=== PATIENT | male | born 1985 ===

== ENCOUNTER 2017-06-18 19:15 | Emergency (ER) | payer BC ==
[2017-06-18 19:42] VITALS: BP 119/78
--- NOTE | 2017-06-18 21:24 | UC ---
Hand/Wrist HPI - HPI Summary HPI Summary: Patient here with onset of redness and swelling right hand dorsal surface overlying third to fifth metacarpals. Reports that he got a piece of metal stuck on the ulnar aspect of his right hand about a month ago while he was working on his car and was unable to remove it. Other than tenderness from time to time he has not had any trouble with this area until yesterday. Last TDaP in 2017. - History Of Current Complaint Chief Complaint: UCUpperExtremity Stated Complaint: HAND COMPLAINT Time Seen by Provider: 06/18/17 21:14 Hx Obtained From: Patient Onset/Duration: Gradual Onset, Lasting Days - 1 day, Still Present Severity Initially: Moderate Severity Currently: Moderate Pain Intensity: 3 Pain Scale Used: 0-10 Numeric Character Of Pain: Sharp Aggravating Factor(s): Movement, Other - touch Alleviating Factor(s): Rest Associated Signs And Symptoms: Positive: Swelling, Redness. Negative: Numbness/ Tingling Related History: Dominant Hand Right - Allergies/Home Medications Allergies/Adverse Reactions: Allergies Allergy/AdvReac Type Severity Reaction Status Date / Time No Known Allergies Allergy Verified 06/18/17 19:35 PMH/Surg Hx/FS Hx/Imm Hx Previously Healthy: Yes - Surgical History Surgical History: None - Family History Known Family History: Positive: Hypertension - Social History Alcohol Use: Occasionally Substance Use Type: None Smoking Status (MU): Never Smoked Tobacco Review of Systems Constitutional: Negative Skin: Other - erythema right hand dorsal surface Respiratory: Negative Cardiovascular: Negative Gastrointestinal: Negative Musculoskeletal: Edema - right hand All Other Systems Reviewed And Are Negative: Yes Physical Exam Triage Information Reviewed: Yes Appearance: Well-Appearing, No Pain Distress, Well-Nourished Vital Signs: Initial Vital Signs Temp 98 F 06/18/17 19:35 Pulse 62 06/18/17 19:35 Resp 18 06/18/17 19:35 BP 119/78 06/18/17 19:35 Pulse Ox 100 06/18/17 19:35 Vital Signs Reviewed: Yes Eyes: Positive: Conjunctiva Clear ENT: Positive: Hearing grossly normal Neck: Positive: Supple Respiratory: Positive: No respiratory distress, No accessory muscle use Cardiovascular: Positive: Pulses Normal Abdomen Description: Positive: Soft Musculoskeletal: Positive: ROM Intact, Edema @ - right hand dorsal surface overlying 3rd-5th metacarpals, Other: - TTP right hand dorsal surface over area of erythema and edema. Palpable area of induration overlying presumed foreign body ulnar aspect of right hand Neurological: Positive: Alert Psychological: Positive: Age Appropriate Behavior Skin: Positive: Other - erythema dorsal surface right hand overlying 3rd-5th metacarpals Diagnostics - Radiology RIGHT HAND XRAY Xray Interpretation: Positive (See Comments) - Radiopaque foreign body in the ulnar aspect of the right hand. Radiology Interpretation Completed By: Radiologist Hand/Wrist Course/Dx - Differential Dx/Diagnosis Provider Diagnoses: 1. CELLULITIS RIGHT HAND. 2. RIGHT HAND SOFT TISSUE FB - RETAINED Discharge - Sign-Out/Discharge Documenting (check all that apply): Discharge - Discharge Plan Condition: Stable Disposition: HOME Prescriptions: Sulfamethox/Trimethoprim DS* [Bactrim DS 800/160 TAB*] 1 tab PO BID #19 tab Patient Education Materials: Soft Tissue Foreign Body (ED), Cellulitis (ED) Referrals: Oniel Zamora MD [Medical Doctor] - 2 Days Harsha ALONSO,Grady Liang [Primary Care Provider] - If Needed Additional Instructions: X-ray shows a retained foreign body in your right hand. Given its depth and the length of time it has been there recommend orthopedic follow-up for removal. We'll cover your skin infection with Bactrim twice daily for 10 days. Ibuprofen as needed for discomfort. Go to the [facility] without fail if you develop worsening pain, rigors, fever, loss of range of motion in your hand or any other concerning symptoms. - Billing Disposition and Condition Condition: STABLE Disposition: HOME
[2017-06-18] MEDS ORDERED: Sulfamethox/Trimethoprim DS 800/160* TAB PO ONE (21:43)
--- NOTE | 2017-06-18 21:47 | RAD ---
Indication: Foreign body in the right hand 3 views of the right hand demonstrates radiopaque foreign body in the soft tissue at the level of the mid fifth metacarpal. IMPRESSION: Radiopaque foreign body in the ulnar aspect of the right hand.
== END 2017-06-18 21:53 | disposition home or self-care (01) ==
LOC: UCEAST 19:15
DX: L03.113 Cellulitis of right upper limb (principal); M79.5 Residual foreign body in soft tissue
CPT/HCPCS: 99202; A9270-GY; G0463

== ENCOUNTER → 2017-07-01 | Day surgery (SDC) | payer BC ==
[~2017-07-01] MED LIST: Buffered Lidocaine 0.9% SYRIN* 5 ML/SYR SYRINGE ONE; Bupivacaine 0.5%* 50 ML VIAL ONE; Lidocaine 1% INJ* 10 MG/ML 30 ML SDV ONE; Lidocaine 1% MPF wEPI 200,000* 30 ML SDV ONE; ceFAZolin 2 GM PREMIX (*) 2 GM/50 ML BAG IVPB ONE
[2017-07-01 09:24] VITALS: BP 130/80
--- NOTE | 2017-07-03 01:37 | OP ---
OPERATIVE REPORT: DATE OF OPERATION: 07/01/17 DATE OF : 83 SURGEON: Dr. Oniel Zamora. FACILITY MECHANIC: ORLANDO Dobbins A physician community relations assistant was required for positioning, retraction and assistance with closure. ANESTHESIOLOGIST: None. ANESTHESIA: Local anesthesia consisting of 10 cc of mixture of lidocaine 1% with epinephrine and 0.5% Marcaine without epinephrine. They are mixed together at a 1:1 ratio. PRE-OP DIAGNOSIS: Foreign body, right hand. POST-OP DIAGNOSIS: Foreign body, right hand, at the level of muscle fascia. OPERATIVE PROCEDURE: Open removal of foreign body, dorsal hand, at the level of muscle, fascia. ANTIBIOTICS: Ancef 2 g IV. IV FLUIDS: 400 cc. TOURNIQUET TIME: 6 min at 250 mmHg. Prior to the elevation of the tourniquet for a period of several minutes, I had tried a tourniquet consisting of an Esmarch wrapped 3 times around the forearm. HEPC-YD-AIXG TIME: 18 minutes. RADIATION WITH MINI C-ARM: 21 seconds. EXPOSURE WITH MINI C-ARM: 2.616 mGy meter squared. COMPLICATION: None. SPECIMEN: Two pieces, one small, thin and one longer. IMPLANTS: None. INDICATIONS FOR THE PROCEDURE: The patient is a 31-year-old man, right hand dominant, a second class welder, who was cleaning off the muffler on 05/14/17 when a piece of wire shot into his right hand. Initially, he was okay. He had some discomfort and tenderness and pain about the ulnar aspect at the dorsal aspect of the right hand. However, he developed soft tissue swelling on 06/18/17 when his hands swelled. There was significant tearing and some erythema. The patient went to Urgent Care and was diagnosed with cellulitis and the patient was treated with Bactrim. The patient presented to me on 06/21/17 in clinic. He was interested in having foreign body removed. The foreign body had been detected by x-ray at Urgent Care. He wants the foreign body removed because it was painful and the patient thought it was predisposing him to infection in that location. Both were reasonable reasons to proceed forward with surgery. Discussed risks and potential complications of the surgery including bleeding, infection, nerve or blood vessel injury, tendon injury. DESCRIPTION OF PROCEDURE: The patient in the preop holding signed a written consent. Operative extremity was marked in the preoperative holding. The patient was taken back to the operating room and placed on operating room table. A bump was placed under the right shoulder. A tourniquet was placed around the right upper arm. Prior to the prepping and draping, I used a mini C-arm in the room to confirm the presence of foreign body and used a skin marker to target the exact location of the metallic body. I then performed a local anesthetic nerve block. I infused 10 cc of a mixture of lidocaine 1% with epinephrine and Marcaine 0.5% without epinephrine into the dorsal ulnar aspect of the right hand proximal to the location of the foreign body. The right upper extremity was prepped with Betadine and then was draped. There was no sedation.After prepping and draping, we performed a surgical time-out. To minimize discomfort given the lack of anesthesia, I decided to place a limited tourniquet by using an Esmarch and wrapping it 3 times about the forearm. This is an established technique with literature supporting it. I made a skin incision longitudinal, approximately 3 cm in the location overlying the foreign body. I dissected down through subcutaneous tissue. There was a superficial vein that bled. Bipolar electrocautery was used for hemostasis; however, the patient had generalized oozing. I therefore decided to take down my Esmarch tourniquet and inflate the real upper arm tourniquet at 250 mmHg. Once the proper tourniquet had been inflated, I returned to wound and it was really dry. The wire was quite visible, partly in the subcutaneous tissue, partly through fascia and to deeper tissue. I removed a foreign body in one small piece at the tip of it that was brittle and came off and the rest of the metallic wire came out in one piece. I took mini C-arm images confirming full removal of foreign body. No pus had been present in the wound. I irrigated the wound well. On closure of the skin with three horizontal mattress stitches using nylon 4-0 suture. Xeroform, 4x4s, Kerlix dressing followed by Coban dressing. The drapes were taken down and the patient was transferred to the PACU. DISPOSITION: The patient was prescribed Bactrim double strength b.i.d. x3 days postoperatively. He was offered, but declined any narcotic pain medications. We recommended that the patient take NSAIDs over the counter as needed for pain. The patient will follow up approximately 10 days postoperatively in clinic with me to have the stitches removed. [id number]/[facility] #: [id number] ABRAHAM
== END | disposition home or self-care (01) ==
LOC: OR 07:27
PROVIDERS: ATTEND Orthopaedic Surgery
DX: S61.441A Puncture wound with foreign body of right hand, initial encounter (principal); W45.8XXA Other foreign body or object entering through skin, initial encounter; Y93.89 Activity, other specified; Y92.9 Unspecified place or not applicable; Y99.9 Unspecified external cause status
CPT/HCPCS: 88300; J0690; J2001